=== PATIENT | female | born 1950 | race Caucasian/White ===

== ENCOUNTER → 2017-02-01 | Outpatient (CLI) | payer OTHER ==
[~2017-02-01] MED LIST: ALBUTEROL20 ml INH; ALPRAZOLAM1 M1 PO; BAYER ASPIRIN325 M1 PO; CALCIUM + D 6001 TA1 PO; CENTRUM PO; COMBIVENT RESPIM4 GM INH; DESYREL100 MG DOB; DOXEPIN HCL50 MG PO; HYDROCODON-ACE1 EAC5 PO; KLONOPIN1 MG PO; LAMICTAL PO; LAMICTAL100 MG PO; LASIX PO; LIPITOR20 MG PO; LISINOPRIL1 GM PO; LISINOPRIL10 MG PO; LOPRESSOR PO; LORTAB 5/500 TA1 TA1 PO; LOVAZA1 G PO; MEDROL DOSEPAK4 MG DOB; METOPROLOL SUCC50 MG PO; NIACIN50 MG PO; ONE-A-DAY WEIGH1 TAB PO; PANTOPRAZOLE SO40 MG PO; PLAVIX PO; PROZAC40 MG PO; REQUIP4 MG PO; RLS; SIMVASTATIN40 MG PO; SPIRIVA18 MCG INH; XANAX1 MG PO; ZANAFLEX4 M1 PO; ZANTAC150 M1 PO; ZESTRIL10 M1 PO; ZESTRIL40 MG PO; ZINC100 MG PO; [UNRECOGNIZED DRUG - OTHER] PO
--- NOTE | ~2017-02-01 | CR127 ---
[facility] A Service of [facility] & [facility] / [facility] RADIOLOGY TEXT RESULTS PATIENT: EUNICE GUERRA LOCATION: [facility] : [id number] UNIT #: [id number] AGE: [address]: Gordon Morales MD SEX: F ORDER DR: [id number] [facility] [address] [place], [place] [address] [id number] O MR#: [id number] Acc #: [id number] NAME: EUNICE GUERRA : 1950 SEX: F STUDY DATE/TIME: 02/01/2017 17:59 UNIT: [facility] ROOM: STUDY DESCRIPTION: CR Foot Complete Min 3 View Rt Attending Physician: Gordon Morales M.D. Referring Physician: Gordon Morales M.D. Ordering Physician: Gordon Morales M.D. Primary Care Physician: Gordon Morales M.D. MEDICAL IMAGING REPORT This report is preliminary unless electronic signature is present EXAM Right foot INDICATIONS Right foot pain for 10 days. FINDINGS Three views of the right foot were obtained. Bones are normal in appearance. There is a 5 mm plantar calcaneal spur. IMPRESSION 5 mm plantar calcaneal spur, otherwise normal. Dictated by... Toni Negrete M.D. THIS IS AN ELECTRONICALLY VERIFIED REPORT Toni Negrete M.D. at 02/02/2017 3:57 PM FEL/adeline TD: 02/02/2017 11:35 JOB #: [id number] MEDICAL IMAGING REPORT Page 1 of 1 COPY
== END | disposition home or self-care (01) ==
LOC: CRAD 16:56
DX: M79.671 Pain in right foot (principal); M79.89 Other specified soft tissue disorders; M77.31 Calcaneal spur, right foot
CPT/HCPCS: 73630